=== PATIENT | female | born 1960 | race Caucasian/White ===

== ENCOUNTER 2019-08-02 17:02 | Emergency (ER) | payer BC ==
--- NOTE | 2019-08-02 17:20 | ED ---
Chest Pain HPI - General Chief Complaint: Chest Pain Stated Complaint: Chest Pain Time Seen by Provider: 08/02/19 17:14 Source: patient, RN notes reviewed, old records reviewed Mode of arrival: ambulatory Limitations: no limitations - History of Present Illness Initial Comments: This is a 58-year-old female the ER for evaluation presents today for evaluation of chest pain. A she has chest pain and tightness substernally. Patient believes it may be anxiety related as increased stress at work and is symptoms started at work today she was able to finish her work shift she has no shortness of breath no sweating. No recent travel history or sick contacts no swelling of her legs. Patient has history of high cholesterol but no other significant car diac risk factors nonsmoker both mother and father do have undisclosed heart issues MD Complaint: chest pain -: hour(s) Onset: during rest, during exertion Pain Location: substernal Severity: mild Severity scale (1-10): 3 Quality: aching Consistency: intermittent Improves With: nothing Worsens With: nothing Anginal Symptoms: dyspnea Other Symptoms: cough Treatments Prior to Arrival: none - Related Data Home Medications Medication Instructions Recorded Confirmed Losartan [Cozaar] 25 mg PO HS 08/02/19 08/02/19 Montelukast [Singulair] 10 mg PO HS 08/02/19 08/02/19 Multivitamins, Thera [Multivitamin 1 tab PO DAILY 08/02/19 08/02/19 (formulary)] Omeprazole 40 mg PO DAILY 08/02/19 08/02/19 Simvastatin 40 mg PO HS 08/02/19 08/02/19 metFORMIN HCL [Glucophage] 1,000 mg PO BID 08/02/19 08/02/19 sitaGLIPtin [Januvia] 100 mg PO DAILY 08/02/19 08/02/19 Allergies Allergy/AdvReac Type Severity Reaction Status Date / Time Penicillins Allergy Rash/Hives Verified 08/02/19 19:38 gluten AdvReac celiacs Verified 08/02/19 19:38 Review of Systems ROS Statement: Those systems with pertinent positive or pertinent negative responses have been documented in the HPI. ROS Other: All systems not noted in ROS Statement are negative. EKG Findings - EKG Comments: EKG Findings:: EKG shows sinus rhythm rate of 87, MD 114, QRS 70, QTc 435 Past Medical History Past Medical History: Diabetes Mellitus Additional Past Medical History / Comment(s): Celiac History of Any Multi-Drug Resistant Organisms: None Reported Past Surgical History: Section, Cholecystectomy, Hysterectomy Past Psychological History: No Psychological Hx Reported Smoking Status: Never smoker Past Alcohol Use History: Occasional Past Drug Use History: None Reported General Exam Limitations: no limitations General appearance: alert, in no apparent distress Head exam: Present: atraumatic, normocephalic, normal inspection Eye exam: Present: normal appearance, PERRL, EOMI. Absent: scleral icterus, conjunctival injection, periorbital swelling ENT exam: Present: normal exam, mucous membranes moist Neck exam: Present: normal inspection. Absent: tenderness, meningismus, lymphadenopathy Respiratory exam: Present: normal lung sounds bilaterally. Absent: respiratory distress, wheezes, rales, rhonchi, stridor Cardiovascular Exam: Present: regular rate, normal rhythm, normal heart sounds. Absent: systolic murmur, diastolic murmur, rubs, gallop, clicks GI/Abdominal exam: Present: soft, normal bowel sounds. Absent: distended, tenderness, guarding, rebound, rigid Extremities exam: Present: normal inspection, full ROM, normal capillary refill. Absent: tenderness, pedal edema, joint swelling, calf tenderness Back exam: Present: normal inspection Neurological exam: Present: alert, oriented X3, CN II-XII intact Psychiatric exam: Present: normal affect, normal mood Skin exam: Present: warm, dry, intact, normal color. 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 Patient states she is now is in hospital for further evaluation. Understands that will not for rule out cardiac disease. Questions are otherwise answered Chest Pain MDM - MDM 58 female the ER for evaluation patient's presented today for evaluation regards to chest pain. Patient has no current chest pain troponins negative 2 x-ray was also negative. Patient can be discharged home Disposition Clinical Impression: Chest pain Disposition: HOME SELF-CARE Condition: Undetermined Instructions (If sedation given, give patient instructions): Chest Pain (ED) Is patient prescribed a controlled substance at d/c from ED?: No Referrals: Jono Beltran MD [Primary Care Provider] - 1-2 days
[2019-08-02 18:30] LABS: Basophils % (A) 0 %; Eosinophils % (A) 1 %; HCT 40.2 % (34.0-46.0); HGB 13.6 gm/dL (11.4-16.0); Lymphocytes # (A) 1.7 k/uL (1.0-4.8); Lymphocytes % (A) 22 %; MCH 31.5 pg (25.0-35.0); MCHC 33.8 g/dL (31.0-37.0); MCV 93.2 fL (80.0-100.0); Mean Platelet Volume 6.7; Monocytes # (A) 0.5 k/uL (0-1.0); Monocytes % (A) 7 %; Neutrophils # (A) 5.2 k/uL (1.3-7.7); Neutrophils % (A) 69 %; Platelet Count 272 k/uL (150-450); RBC 4.31 m/uL (3.80-5.40); RDW 12.4 % (11.5-15.5); WBC 7.5 k/uL (3.8-10.6)
[2019-08-02 18:32] VITALS: RESP 16
[2019-08-02 18:33] LABS: ALT 39 U/L (9-52); AST 36 U/L (14-36); African American GFR (CKD) >90 (>60 ml/min/1.73 sqM); Albumin 4.8 g/dL (3.5-5.0); Alkaline Phosphatase 89 U/L (38-126); Anion Gap 11 mmol/L; Blood Urea Nitrogen 14 mg/dL (7-17); Calcium 10.1 mg/dL (8.4-10.2); Carbon Dioxide 24 mmol/L (22-30); Chloride 103 mmol/L (98-107); Glucose 169 mg/dL (74-99); Magnesium 1.7 mg/dL (1.6-2.3); Non-African American GFR(CKD) >90 (>60 ml/min/1.73 sqM); Potassium 4.7 mmol/L (3.5-5.1); Sodium 138 mmol/L (137-145); Total Bilirubin 0.5 mg/dL (0.2-1.3); Total Protein 7.9 g/dL (6.3-8.2)
[2019-08-02 18:48] LABS: D-Dimer 0.31 mg/L FEU (<0.60); INR 0.9 (<1.2); Partial Thromboplastin Time 21.8 sec (22.0-30.0)
--- NOTE | 2019-08-02 19:25 | XR ---
EXAMINATION: XR chest 2V DATE AND TIME: 08/02/2019 6:38 PM CLINICAL INDICATION: PHH; Chest Pain TECHNIQUE: Departmental protocol COMPARISON: None FINDINGS: EKG leads noted. The lungs are clear. The pleural spaces are negative. The cardiac silhouette is not enlarged. The remainder of the mediastinal silhouette is unremarkable. The skeletal structures and soft tissues are negative for acute findings. IMPRESSION: NO ACUTE PROCESS.
[2019-08-02 21:33] VITALS: BP 112/82; PULSE 81; TEMP 98.4
== END 2019-08-02 21:40 | disposition home or self-care (01) ==
LOC: EC 17:02
DX: R07.89 Other chest pain (principal); R06.00 Dyspnea, unspecified; R05 Cough; E11.9 Type 2 diabetes mellitus without complications; E78.00 Pure hypercholesterolemia, unspecified; Z88.0 Allergy status to penicillin; Z91.018 Allergy to other foods; Z79.84 Long term (current) use of oral hypoglycemic drugs; Z79.899 Other long term (current) drug therapy; Z87.19 Personal history of other diseases of the digestive system; Z56.3 Stressful work schedule
CPT/HCPCS: 36415; 71046; 80053; 83690; 83735; 83880; 84484; 85025; 85379; 85610; 85730; 93005; 99285

== ENCOUNTER 2020-01-15 22:29 | Emergency (ER) | payer BC ==
[2020-01-15 22:37] VITALS: PULSE 105; RESP 20; TEMP 98.3
[2020-01-15 22:49] VITALS: BP 130/82
[2020-01-16] MEDS ORDERED: SODIUM CHLORIDE 0.9% 1,000 ML BAG ONE (00:15)
[2020-01-16 05:10] LABS: Basophils % (A) 0 %; Eosinophils # (A) 0.1 k/uL (0-0.7); Eosinophils % (A) 1 %; HCT 38.3 % (34.0-46.0); HGB 12.7 gm/dL (11.4-16.0); Lymphocytes # (A) 1.1 k/uL (1.0-4.8); Lymphocytes % (A) 13 %; MCH 31.4 pg (25.0-35.0); MCV 95.1 fL (80.0-100.0); Mean Platelet Volume 7.9; Monocytes # (A) 0.6 k/uL (0-1.0); Monocytes % (A) 7 %; Neutrophils # (A) 6.2 k/uL (1.3-7.7); Neutrophils % (A) 77 %; Platelet Count 229 k/uL (150-450); RBC 4.03 m/uL (3.80-5.40); RDW 12.7 % (11.5-15.5); WBC 8.1 k/uL (3.8-10.6)
[2020-01-16 05:57] LABS: ALT 21 U/L (4-34); AST 25 U/L (14-36); African American GFR (CKD) >90 (>60 ml/min/1.73 sqM); Albumin 4.3 g/dL (3.5-5.0); Alkaline Phosphatase 82 U/L (38-126); Anion Gap 10 mmol/L; Blood Urea Nitrogen 11 mg/dL (7-17); Calcium 9.8 mg/dL (8.4-10.2); Carbon Dioxide 27 mmol/L (22-30); Chloride 101 mmol/L (98-107); Glucose 179 mg/dL (74-99); Non-African American GFR(CKD) >90 (>60 ml/min/1.73 sqM); Phosphorus 3.2 mg/dL (2.5-4.5); Potassium 4.2 mmol/L (3.5-5.1); Sodium 138 mmol/L (137-145); Total Bilirubin 0.3 mg/dL (0.2-1.3); Total Protein 6.9 g/dL (6.3-8.2)
[2020-01-16 06:11] LABS: Creatine Kinase 60 U/L (30-135)
--- NOTE | 2020-01-16 06:40 | CT ---
EXAM: CT Angiography Chest With Intravenous Contrast CLINICAL HISTORY: SOB TECHNIQUE: Axial computed tomographic angiography images of the chest with intravenous contrast. CTDI is 7 mGy and DLP is 256 mGy-cm. This CT exam was performed using one or more of the following dose reduction techniques: automated exposure control, adjustment of the mA and/or kV according to patient size, and/or use of iterative reconstruction technique. MIP reconstructed images were created and reviewed. COMPARISON: 08/02/2019 FINDINGS: Pulmonary arteries: No filling defects. Aorta: No thoracic aortic aneurysm. Lungs: No mass. Groundglass opacities in the bilateral lower lobes. Pleural space: No pneumothorax. No effusion. Heart: No cardiomegaly. No pericardial effusion. Bones/joints: No acute fracture or dislocation. Soft tissues: Mild hiatal hernia. Lymph nodes: No enlarged lymph nodes. IMPRESSION: 1. Groundglass opacities in the bilateral lower lobes, correlate with infectious/inflammatory process. 2. Mild hiatal hernia. 3. No pulmonary embolism.
== END 2020-01-16 03:15 | disposition home or self-care (01) ==
LOC: EC 22:29
DX: R07.9 Chest pain, unspecified (principal); R06.02 Shortness of breath; E11.9 Type 2 diabetes mellitus without complications; Z20.828 Contact with and (suspected) exposure to other viral communicable diseases
CPT/HCPCS: 99285; 36415; 93005; 85379; 83880; 80053; 82550; 83690; 83735; 84100; 84484; 85025; 87635; 71275; 96360; 96361; Q9967

== ENCOUNTER → 2021-03-01 | Outpatient (CLI) | payer BC ==
--- NOTE | 2021-03-02 11:15 | MM ---
Reason for exam: screening (asymptomatic). Last mammogram was performed 1 year ago. History: Patient is postmenopausal. Took estrogen for 10 years. Physical Findings: A clinical breast exam by your physician is recommended on an annual basis and results should be correlated with mammographic findings. MG 3D Screening Mammo W/Cad Bilateral CC and MLO view(s) were taken. Prior study comparison: February 28, 2020, mammogram, performed at [facility]. September 06, 2016, mammogram, performed at [facility]. December 08, 2014, mammogram, performed at [facility]. There are scattered fibroglandular densities. There is no discrete abnormality. No significant changes when compared with prior studies. ASSESSMENT: Negative, BI-RAD 1 RECOMMENDATION: Routine screening mammogram of both breasts in 1 year.
== END | disposition home or self-care (01) ==
LOC: RADMAMWWP 14:39
PROVIDERS: ATTEND Internal Medicine
DX: Z12.31 Encounter for screening mammogram for malignant neoplasm of breast (principal)
CPT/HCPCS: 77063; 77067

== ENCOUNTER → 2022-05-11 | Outpatient (CLI) | payer BC ==
--- NOTE | 2022-05-11 14:24 | BD ---
EXAMINATION TYPE: Axial Bone Density DATE OF EXAM: 05/11/2022 COMPARISON: FIRST DEXA AT [facility] CLINICAL HISTORY: 61 years year old Female. ICD-10 CODE: Z78.0 ASYMPTOMATIC MENOPAUSAL STATE Height: 66IN Weight: 135 FRAX RISK QUESTIONS: Family History (Parent hip fracture): YES Secondary Osteoporosis: 3. Menopause before 45: YES 4. Malnutrition: CELIAC RISK FACTORS HISTORY OF: Active: YES Postmenopausal woman: YES TOTAL HYSTERECTOMY AT 39 Take estrogen and/or progesterone medications: YES How long: ABOUT 5 YEARS MEDICATIONS: Additional Medications: DIABETIC MEDS, BP MEDS, CHOLESTEROL MED, CALCIUM, VITAMIN D Additional History: EXAM MEASUREMENTS: Bone mineral densitometry was performed using the [employer] System. Bone mineral density as measured about the Lumbar spine is: ----- L1-L4(G/cm2): 1.011 T Score Values are as follows: ----- L1: -2.3 ----- L2: -2.0 ----- L3: -0.8 ----- L4: -0.8 ----- L1-L4: -1.4 FIRST DEXA AT [facility] Bone mineral density about the R hip (g/cm2): 0.843 Bone mineral density about the L hip (g/cm2): 0.842 T Score values are as follows: -----R Neck: -1.5 -----L Neck: -1.6 -----R Total: -1.3 -----L Total: -1.3 FIRST DEXA AT [facility] FRAX%s: The graph provided illustrates a 16.0% chance for a major osteoporotic fx and a 1.0% chance f or the hips probability for fx in 10 years time. IMPRESSION: Osteopenia (T Score between -2.5 and -1). There is slightly increased risk of fracture and the patient may be considered for treatment. Re-Screen 2-5 years. NOTE: T-SCORE=SD OF THE YOUNG ADULT MEAN.
--- NOTE | 2022-05-12 08:15 | MM ---
Reason for Exam: Screening (asymptomatic). Last mammogram was performed 1 year(s) and 2 month(s) ago. Patient History: Menarche at age 12. First Full-Term at age 25. Left ovary removed at age 49. Right ovary removed at age 49. Hysterectomy at age 49. Postmenopausal. Patient has history of breast feeding. Patient used Estrogen for 10 years. Risk Values: Snehal 5 year model risk: 1.7%. NCI Lifetime model risk: 7.7%. Prior Study Comparison: 09/06/2016 Screening Mammogram, [facility] [place]. 02/28/2020 Screening Mammogram, [facility] [place]. 03/01/2021 Bilateral Screening Mammogram, [facility]. Tissue Density: There are scattered fibroglandular densities. Findings: Analyzed By CAD. A few benign-appearing linear calcifications in the left breast are redemonstrated. Tiny circumscribed small masses upper aspect right breast are stable. There is no suspicious new group of microcalcifications or new distortion in either breast. Overall Assessment: Benign, BI-RAD 2 Management: Screening Mammogram of both breasts in 1 year. A clinical breast exam by your physician is recommended on an annual basis and results should be correlated with mammographic findings. Electronically signed and approved by: John Paul Campos M.D.
== END | disposition home or self-care (01) ==
LOC: RADMAMWWP 12:50
PROVIDERS: ATTEND Internal Medicine
DX: Z12.31 Encounter for screening mammogram for malignant neoplasm of breast (principal); Z78.0 Asymptomatic menopausal state
CPT/HCPCS: 77067; 77080

== ENCOUNTER → 2023-05-16 | Outpatient (CLI) | payer BC ==
--- NOTE | 2023-05-17 08:29 | MM ---
Reason for Exam: Screening (asymptomatic). Last mammogram was performed 1 year(s) and 1 month(s) ago. Patient History: Menarche at age 12. First Full-Term at age 25. Left ovary removed at age 49. Right ovary removed at age 49. Hysterectomy at age 49. Postmenopausal. Patient has history of breast feeding. Patient used Estrogen for 10 years. Risk Values: Snehal 5 year model risk: 1.7%. NCI Lifetime model risk: 7.4%. Prior Study Comparison: 02/28/2020 Screening Mammogram, [facility]. 03/01/2021 Bilateral Screening Mammogram, [facility]. 05/11/2022 Bilateral MG screening mammo w CAD, [facility]. Tissue Density: There are scattered fibroglandular densities. Findings: Analyzed By CAD. There is no suspicious group of microcalcifications or new suspicious mass in either breast. Stable benign-appearing linear calcifications in the left breast redemonstrated. Chronic nodularity within the right breast is stable. Overall Assessment: Benign, BI-RAD 2 Management: Screening Mammogram of both breasts in 1 year. A clinical breast exam by your physician is recommended on an annual basis and results should be correlated with mammographic findings. Note on Snehal scores and lifetime risk: 1. A Snehal score greater than 3% is considered moderate risk. If this is the case, consider specialist referral to assess eligibility for a risk reducing agent. If overall lifetime risk for the development of breast cancer is 20% or higher, the patient may qualify for future screening with alternating mammogram and breast MRI. Electronically signed and approved by: Teofilo Villalpando D.O.
== END | disposition home or self-care (01) ==
LOC: RADMAMWWP 09:37
PROVIDERS: ATTEND Internal Medicine
DX: Z12.31 Encounter for screening mammogram for malignant neoplasm of breast (principal); Z78.0 Asymptomatic menopausal state
CPT/HCPCS: 77063; 77067

== ENCOUNTER → 2024-05-17 | Outpatient (CLI) | payer BC ==
--- NOTE | 2024-05-17 10:46 | BD ---
EXAMINATION TYPE: Axial Bone Density DATE OF EXAM: 05/17/2024 CLINICAL HISTORY: 63 years old Female. ICD-10 CODE: M85.851 OTHER DISORDERS OF BONE Height: 64.7in Weight: 127lb FRAX RISK QUESTIONS: Family History (Parent hip fracture): yes Secondary Osteoporosis: 3. Menopause before 45: yes 4. Malnutrition: celiac RISK FACTORS HISTORY OF: MEDICATIONS: EXAM MEASUREMENTS: Bone mineral densitometry was performed using the [employer] System. Bone mineral density as measured about the Lumbar spine is: ----- L1-L4(G/cm2): 0.974 T Score Values are as follows: ----- L1: -2.4 ----- L2: -2.0 ----- L3: -1.4 ----- L4: -1.4 ----- L1-L4: -1.7 Z Score Values are as follows: ----- L1: -0.6 ----- L2: -0.2 ----- L3: 0.4 ----- L4: 0.4 ----- L1-L4: 0.1 Bone mineral density has: Decreased -3.7% since study of: 05-11-22 Bone mineral density about the R hip (g/cm2): 0.839 Bone mineral density about the L hip (g/cm2): 0.813 T Score values are as follows: -----R Neck: -1.7 -----L Neck: -1.8 -----R Total: -1.3 -----L Total: -1.5 Z Score values are as follows: -----R Neck: -0.1 -----L Neck: -0.2 -----R Total: 0.0 -----L Total: -0.2 Bone mineral density has: Decreased -2.0% since study of: 05-11-22 FRAX%s: The graph provided illustrates a 17.0% chance for a major osteoporotic fx and a 1.3% chance f or the hips probability for fx in 10 years time. IMPRESSION: Osteopenia (T Score between -2.5 and -1). There is slightly increased risk of fracture and the patient may be considered for treatment. Re-Screen 2-5 years. NOTE: T-SCORE=SD OF THE YOUNG ADULT MEAN.
--- NOTE | 2024-05-19 12:35 | MM ---
Reason for Exam: Screening (asymptomatic). Last screening mammogram was performed 12 month(s) ago. Patient History: Menarche at age 12. First Full-Term at age 25. Left ovary removed at age 49. Right ovary removed at age 49. Hysterectomy at age 49. Postmenopausal. Patient has history of breast feeding. Patient used Estrogen for 10 years. Risk Values: Snehal 5 year model risk: 1.8%. NCI Lifetime model risk: 7.2%. Prior Study Comparison: 09/06/2016 Screening Mammogram, [facility]. 02/28/2020 Screening Mammogram, [facility]. 03/01/2021 Bilateral Screening Mammogram, [facility]. 05/11/2022 Bilateral MG screening mammo w CAD, [facility]. 05/16/2023 Bilateral MG 3D screening mammo w/cad, [facility]. Tissue Density: There are scattered areas of fibroglandular density. Findings: Analyzed By CAD. Right breast: There is no suspicious group of microcalcifications or new suspicious mass. Left breast: There is no suspicious group of microcalcifications or new suspicious mass. Overall Assessment: Negative, BI-RAD 1 Management: Screening Mammogram of both breasts in [address] [facility] will attempt to contact patient to return for supplemental views and ultrasound if indicated. Patient should continue monthly self-breast exams. A clinical breast exam by your physician is recommended on an annual basis. This exam should not preclude additional follow-up of suspicious palpable abnormalities. Note on Snehal scores and lifetime risk: 1. A Snehal score greater than 3% is considered moderate risk. If this is the case, consider specialist referral to assess eligibility for a risk reducing agent. 2. If overall lifetime risk for the development of breast cancer is 20% or higher, the patient may qualify for future screening with alternating mammogram and breast MRI. Electronically signed and approved by: Chauncey Crum DO
== END | disposition home or self-care (01) ==
LOC: RADMAMWWP 09:40
PROVIDERS: ATTEND Internal Medicine
DX: Z12.31 Encounter for screening mammogram for malignant neoplasm of breast (principal); M85.89 Other specified disorders of bone density and structure, multiple sites; R92.323 Mammographic fibroglandular density, bilateral breasts; Z78.0 Asymptomatic menopausal state
CPT/HCPCS: 77063; 77067; 77080